=== PATIENT | male | born 1955 | race Caucasian/White ===

== ENCOUNTER 2024-10-28 12:32 | Inpatient (IN) | payer BC, MEDICARE ==
[~2024-10-28] VITALS: Ht 185.4 cm; Wt 74.8 kg
[2024-10-28] MEDS: SODIUM CHLORIDE 0.9% 1,000 ML IV ONE (13:35)
[2024-10-28] MEDS: ONDANSETRON HCL 4MG/2ML INJ IV ONE (13:35)
[2024-10-28 14:38] LABS: HEMATOCRIT. 36.4 % (42.0-52.0); HEMOGLOBIN. 12.3 g/dL (14.0-18.0); MEAN PLATELET VOLUME 8.2 fl (7.4-10.4); PLATELET 160 x1000/uL (130-400); RED BLOOD CELL COUNT 3.82 mill/uL (4.7-6.1); RED CELL DISTRIBUTION WIDTH 13.8 % (11.6-14.6)
[2024-10-28 14:51] LABS: CREATININE 1.1 mg/dL (0.6-1.3); TROPONIN I HIGH SENSITIVITY < 4 ng/L (3.0-53); UREA NITROGEN BLOOD 14 mg/dL (9-23)
[2024-10-28 14:53] LABS: ASPARTATE AMINOTRANSFERASE 14 IU/L (<34); BILIRUBIN DIRECT 0.2 mg/dL (<=3.0); BILIRUBIN TOTAL 0.5 mg/dL (0.1-1.0); PROTEIN TOTAL 5.9 g/dL (6.0-8.3)
[2024-10-28 15:00] LABS: BAND% 22.0 % (1.0-6.0); EOSINOPHILS % MANUAL 1.0 % (0.0-5.0); LYMPHOCYTES % MANUAL 15.0 % (20.0-50.0); MONOCYTES % MANUAL 17.0 % (2.0-8.0); NEUTROPHILS % MANUAL 45.0 % (45.0-75.0); PLATELET ESTIMATE NORMAL
[2024-10-28] MEDS ORDERED: ONDANSETRON HCL 4MG/2ML INJ IV PRN (17:00)
[2024-10-28] MEDS ORDERED: IPRATROPIUM/ALBUTEROL 0.5-3(2.5)MG/3ML NEB HHN PRN (17:00)
[2024-10-28] MEDS ORDERED: DOCUSATE SODIUM 100MG CAPSULE PO PRN (17:00)
[2024-10-28] MEDS ORDERED: ACETAMINOPHEN 325MG TABLET PO PRN (17:00)
[2024-10-28 17:50] LABS: PHOSPHORUS 3.5 mg/dL (2.5-4.9)
[2024-10-28 18:00] VITALS: BP 121/66; PULSE 63; TEMP 36.3; O2SAT 100
[2024-10-28] MEDS: ACETAMINOPHEN 325MG TABLET PO PRN (18:53)
[2024-10-28] MEDS ORDERED: IOHEXOL-350 100 ML BOTTLE ONE (19:24)
[2024-10-28 20:00] VITALS: BP 122/69; PULSE 69; RESP 18; TEMP 36.2; O2SAT 100
[2024-10-28] MEDS: ENOXAPARIN 40MG/0.4ML SYR SUBCUT SCH (20:36)
[2024-10-29] VITALS: BP 111/69; PULSE 72; RESP 18; TEMP 36.5; O2SAT 99
[2024-10-29 04:00] VITALS: BP 121/68; PULSE 71; RESP 17; TEMP 36.4; O2SAT 100
[2024-10-29 07:33] LABS: HEMATOCRIT. 37.9 % (42.0-52.0); HEMOGLOBIN. 12.7 g/dL (14.0-18.0); MEAN PLATELET VOLUME 8.4 fl (7.4-10.4); PLATELET 165 x1000/uL (130-400); RED BLOOD CELL COUNT 3.97 mill/uL (4.7-6.1); RED CELL DISTRIBUTION WIDTH 13.7 % (11.6-14.6)
[2024-10-29 07:37] LABS: CREATININE 1.1 mg/dL (0.6-1.3); UREA NITROGEN BLOOD 12 mg/dL (9-23)
[2024-10-29 07:40] LABS: T4 FREE 1.03 ng/dL (0.89-1.76)
[2024-10-29 08:00] VITALS: BP 108/60; PULSE 97; RESP 18; TEMP 36.3; O2SAT 98
[2024-10-29] MEDS: PANTOPRAZOLE SODIUM 40 MG/VIAL IV SCH (10:24)
[2024-10-29 12:00] VITALS: BP 107/60; PULSE 67; RESP 18; TEMP 36.6; O2SAT 97
[2024-10-29 14:20] LABS: BAND% 2.0 % (1.0-6.0); EOSINOPHILS % MANUAL 1.0 % (0.0-5.0); LYMPHOCYTES % MANUAL 49.0 % (20.0-50.0); MONOCYTES % MANUAL 18.0 % (2.0-8.0); NEUTROPHILS % MANUAL 30.0 % (45.0-75.0); PLATELET ESTIMATE NORMAL
[2024-10-29 14:46] LABS: CLARITY URINE CLEAR (CLEAR); COLOR URINE YELLOW (YELLOW); GLUCOSE URINE NEGATIVE (NEGATIVE); KETONES URINE NEGATIVE (NEGATIVE); LEUKOCYTE ESTERASE URINE NEGATIVE (NEGATIVE); NITRITE URINE NEGATIVE (NEGATIVE); OCCULT BLOOD URINE NEGATIVE (NEGATIVE); PH URINE 5.0 (4.5-8.0); PROTEIN URINE NEGATIVE (NEGATIVE); SPECIFIC GRAVITY URINE 1.013 (1.005-1.030); UROBILINOGEN URINE 0.2 E.U./dL (0.2-1.0)
[2024-10-29 14:51] LABS: *AMPHETAMINES SCREEN URINE NEGATIVE (NEGATIVE); *BARBITURATES SCREEN URINE NEGATIVE (NEGATIVE); *BENZODIAZEPINES SCREEN URINE NEGATIVE (NEGATIVE); *COCAINE SCREEN URINE NEGATIVE (NEGATIVE); METHADONE URINE SCREEN NEGATIVE (NEGATIVE)
[2024-10-29 14:52] LABS: CANNABINOID URINE SCREEN NEGATIVE (NEGATIVE); ECSTASY MDMA SCREEN URINE NEGATIVE (NEGATIVE); OPIATES URINE SCREEN NEGATIVE (NEGATIVE); PHENCYCLIDINE URINE SCREEN NEGATIVE (NEGATIVE)
[2024-10-29 16:00] VITALS: BP 103/60; PULSE 70; RESP 18; TEMP 36.7; O2SAT 99
[2024-10-29 18:41] LABS: CREATINE KINASE MB FRACTION 0.6 ng/mL (0.5-3.6); TROPONIN I HIGH SENSITIVITY 4 ng/L (3.0-53)
[2024-10-29 20:00] VITALS: BP 107/61; PULSE 59; RESP 20; TEMP 36.5; O2SAT 98
[2024-10-29] MEDS: KETOROLAC 30MG/ML VIAL IV SCH (23:17)
[2024-10-30] VITALS: BP 103/54; PULSE 50; RESP 20; TEMP 36.4; O2SAT 99
[2024-10-30 02:15] LABS: CREATINE KINASE MB FRACTION 0.7 ng/mL (0.5-3.6)
[2024-10-30 02:16] LABS: TROPONIN I HIGH SENSITIVITY 4.0 ng/L (3.0-53)
[2024-10-30 04:00] VITALS: BP 119/66; PULSE 52; RESP 20; TEMP 36.4; O2SAT 100
[2024-10-30] MEDS: SODIUM CHLORIDE 0.9% 1,000 ML IV SCH (07:45)
[2024-10-30 12:00] VITALS: BP 112/68; PULSE 61; RESP 18; TEMP 36.8; O2SAT 97
[2024-10-30 16:00] VITALS: BP 131/78; PULSE 62; RESP 20; TEMP 36.1; O2SAT 97
[2024-10-30 20:00] VITALS: BP_SYST 11; BP_SYST 110; BP_SYST 123; BP_DIAS 66; BP_DIAS 75; PULSE 61; RESP 18; TEMP 36.7; O2SAT 100
[2024-10-30 22:12] VITALS: BP 119/67; PULSE 71; RESP 18; TEMP 36.696
[2024-10-31] VITALS: BP 117/65; PULSE 62; RESP 18; TEMP 36.6; O2SAT 100
[2024-10-31 04:00] VITALS: BP 128/76; PULSE 66; RESP 17; TEMP 36.6; O2SAT 98
[2024-10-31 08:00] VITALS: BP_SYST 100; BP_SYST 116; BP_SYST 117; BP_SYST 94; BP_DIAS 51; BP_DIAS 55; BP_DIAS 61; BP_DIAS 70; PULSE 61; PULSE 65; RESP 14; RESP 16; TEMP 36.4; TEMP 37; O2SAT 95; O2SAT 96
[2024-10-31 11:12] LABS: CREATININE 1.0 mg/dL (0.6-1.3); TROPONIN I HIGH SENSITIVITY < 4 ng/L (3.0-53); UREA NITROGEN BLOOD 10 mg/dL (9-23)
[2024-10-31 11:14] LABS: PHOSPHORUS 3.3 mg/dL (2.5-4.9)
[2024-10-31 12:00] VITALS: BP_SYST 113; BP_SYST 114; BP_SYST 115; BP_SYST 117; BP_SYST 126; BP_DIAS 69; BP_DIAS 70; BP_DIAS 72; BP_DIAS 73; PULSE 62; PULSE 70; PULSE 73; RESP 13; RESP 16; TEMP 36.4; TEMP 36.7; TEMP 36.8; O2SAT 93; O2SAT 97; O2SAT 99
[2024-10-31 15:24] VITALS: BP 117/72; PULSE 73; TEMP 98.2; O2SAT 99
[2024-10-31 16:00] VITALS: BP 116/72; PULSE 77; RESP 16; TEMP 36.7; O2SAT 99
[2024-10-31 17:09] LABS: HEPATITIS C AB NON REACTIVE (Neg) (Negative)
== END 2024-10-31 16:08 | disposition home or self-care (01) | DRG 312 ==
LOC: ER 12:54 → 6WST 16:08 → EDBEDREQ 16:21
PROVIDERS: ADMIT Internal Medicine; ATTEND Internal Medicine
DX: R55 Syncope and collapse (principal); D64.9 Anemia, unspecified; R00.1 Bradycardia, unspecified; E86.0 Dehydration; I35.1 Nonrheumatic aortic (valve) insufficiency; I77.810 Thoracic aortic ectasia; D72.819 Decreased white blood cell count, unspecified; Z79.899 Other long term (current) drug therapy; Z82.49 Family history of ischemic heart disease and other diseases of the circulatory system; Z85.46 Personal history of malignant neoplasm of prostate; Z90.79 Acquired absence of other genital organ(s)
CPT/HCPCS: 36415; 71045; 71275; 80048; 80076; 80305; 81003; 82550; 82553; 83605; 83735; 84100; 84145; 84439; 84443; 84484; 85014; 85018; 85025; 85379; 86705; 87340; 93005; 93306; 93880; 93970; 99285; J1650; J1885; J2405; J2470; J7030; Q9967